=== PATIENT | female | born 1990 | race Caucasian/White ===

== ENCOUNTER 2023-08-03 09:30 | Outpatient (AMB) | payer BC, SELFPAY ==
[2023-08-03 09:33] VITALS: BP 142/87; PULSE 100; O2SAT 97; BMI 38.5
--- NOTE | 2023-08-03 09:33 | A.OFFVIS_ITS ---
Vital Signs 08/03/23 09:33 Height 5 ft 7 in Weight 245 lb 13.047 oz BMI 38.5 BP 142/87 H Blood Pressure Location Rt brachial Position Sitting Pulse 100 Pulse Source Doppler Pulse Oximetry (%) 97 Oxygen Delivery Method Room Air Intake Visit Reasons: nicola Allergies sulfamethoxazole [From BACTRIM] Allergy (Severe, Verified 08/03/23 09:38) RASH trimethoprim [From BACTRIM] Allergy (Severe, Verified 08/03/23 09:38) RASH HPI HPI nicola: Details: 33-year-old lady with underlying obstructive sleep apnea on CPAP with last sleep study over 10 years prior who is interested in continuation of her CPAP therapy. Patient states that she had significant weight changes And he current machine is no longer working well. She denies prior personal of family history of lung disease. She does have family history of sleep apnea. She is a nonsmoker. [facility] Social History (Updated 08/03/23 @ 09:39 by Theodora Zamudio COUNT INCLUDES THE [facility]) Patient Tobacco Use Status: Never used Tobacco Review of Systems Const Denies daytime sleepiness, Denies excessive sweating, Denies fatigue, Denies fever(s), Denies lethargy, Denies malaise, Denies night sweats, Denies snoring and Denies weight loss Eyes Denies blurry vision and Denies itchy eyes ENT Denies nasal congestion, Denies post nasal drip, Denies sinus pain, Denies sinus pressure and Denies other ( Thrush) Card Denies chest pain, Denies pedal edema, Denies dyspnea, Denies orthopnea and Denies paroxysmal nocturnal dyspnea Resp Denies cough, Denies hemoptysis, Denies excessive phlegm production, Denies dyspnea, Denies snoring and Denies wheezing GI Denies abdominal pain and Denies heartburn Musc Denies myalgias, Denies arthralgias and Denies joint swelling Skin/Breast Denies rash Neuro Denies memory loss and Denies seizure-like activity Psych Denies abnormal sleep pattern, Denies anxiety and Denies memory loss Endo Denies excessive sweating, Denies fatigue and Denies heat intolerance Cruz/Lymph Denies easy bruising Aller/Immun Denies itchy eyes, Denies seasonal rhinorrhea and Denies wheezing Physical Exam Vital Signs: Last Vital Signs Pulse 100 08/03/23 09:33 BP 142/87 H 08/03/23 09:33 Pulse Ox 97 08/03/23 09:33 Oxygen Delivery Method Room Air 08/03/23 09:33 BMI result Body Mass Index 38.5 Const General: no acute distress and alert Nutritional Appearance: obese Orientation/consciousness: Other orientation findings ( oriented) HEENT Head: Yes atraumatic Eyes General: appearance normal, both eyes and all related structures Sclerae: sclerae normal EOM: EOMs intact bilaterally Neck Neck: Yes supple Lymphatic: no lymphadenopathy noted Resp Effort & Inspection: normal respiratory effort and no use of accessory muscles Auscultation: clear to auscultation bilaterally Cardio Rate: regular rate Rhythm: regular rhythm Heart sounds: no gallops, no murmurs and no rubs Skin General skin exam: other ( warm) Extrem General: No clubbing, No cyanosis and No edema Assessment & Plan Assessment & Plan (1) NICOLA (obstructive sleep apnea): Code(s): G47.33 - Obstructive sleep apnea (adult) (pediatric) Category: Medical Plan: underlying NICOLA with remote sleep study and currently with CPAP machine not working well. Patient also had significant weight changes. Will obtain new home sleep study. Orders: Orders RT home sleep study Today G47.33 - Obstructive sleep apnea (adult) (pediatric) Coding Level of Care Code New Pt Level 3 (56172) Diagnoses NICOLA (obstructive sleep apnea) G47.33
== END 2023-08-03 09:46 | disposition home or self-care (01) ==
PROVIDERS: PCP Internal Medicine; Visit Provider Internal Medicine Pulmonary Disease
DX: G47.33 Obstructive sleep apnea (adult) (pediatric) (principal)
CPT/HCPCS: 99203

== ENCOUNTER → 2023-08-03 09:30 | Outpatient (BNVA) | payer BC, SELFPAY | PROVIDERS: PCP Internal Medicine; Visit Provider Internal Medicine Pulmonary Disease ==

== ENCOUNTER → 2023-09-13 08:59 | Outpatient (REF) | payer BC, SELFPAY | LOC: HO.SL 08:59 | PROVIDERS: PCP Internal Medicine; Visit Provider Internal Medicine Pulmonary Disease | DX: G47.33 Obstructive sleep apnea (adult) (pediatric) (principal) | CPT/HCPCS: 95806 ==

== ENCOUNTER → 2024-01-03 20:30 | Outpatient (REF) | payer BC, SELFPAY | LOC: HO.SL 20:30 | PROVIDERS: PCP Internal Medicine; Visit Provider Internal Medicine Pulmonary Disease | DX: G47.33 Obstructive sleep apnea (adult) (pediatric) (principal) | CPT/HCPCS: 95810 ==

== ENCOUNTER → 2024-01-03 23:41 | Outpatient (BNV) | payer BC, SELFPAY | PROVIDERS: PCP Internal Medicine; Visit Provider Internal Medicine | DX: G47.33 Obstructive sleep apnea (adult) (pediatric) (principal) | CPT/HCPCS: 95810 ==

== ENCOUNTER 2024-01-19 14:23 | Outpatient (AMB) | payer BC, SELFPAY ==
[2024-01-19 14:26] VITALS: BP 142/92; PULSE 106; O2SAT 97; BMI 42.3
--- NOTE | 2024-01-19 14:26 | MHC.OFFVIS ---
Vital Signs 01/19/24 14:26 Height 5 ft 7 in Weight 270 lb 1.06 oz BMI 42.3 BP 142/92 H Blood Pressure Location Rt brachial Position Sitting Pulse 106 H Pulse Source Doppler Pulse Oximetry (%) 97 Intake Visit Reasons: Sleep study follow up Allergies sulfamethoxazole [From BACTRIM] Allergy (Severe, Verified 01/19/24 14:31) RASH trimethoprim [From BACTRIM] Allergy (Severe, Verified 01/19/24 14:31) RASH HPI HPI Sleep study follow up: Details: 33-year-old lady with underlying obstructive sleep apnea on CPAP with last sleep study over 10 years prior who is interested in continuation of her CPAP therapy. Patient states that she had significant weight changes And he current machine is no longer working well. She denies prior personal of family history of lung disease. She does have family history of sleep apnea. She is a nonsmoker. Patient had home sleep study and in-lab sleep study both negative for any significant obstructive sleep apnea. [facility] Social History (Updated 08/03/23 @ 09:39 by Theodora Zamudio [facility]) Patient Tobacco Use Status: Never used Tobacco Physical Exam Vital Signs: Last Vital Signs Pulse 106 H 01/19/24 14:26 BP 142/92 H 01/19/24 14:26 Pulse Ox 97 01/19/24 14:26 BMI result Body Mass Index 42.3 Const General: no acute distress, alert and awake Eyes Sclerae: sclerae normal EOM: EOMs intact bilaterally Neck Neck: Yes no lymphadenopathy, Yes trachea midline and Yes supple Resp Effort & Inspection: normal respiratory effort and no respiratory distress Cardio Rate: regular rate Rhythm: regular rhythm Extrem General: No clubbing and No cyanosis Assessment & Plan Assessment & Plan (1) KAYLEN (obstructive sleep apnea): Code(s): G47.33 - Obstructive sleep apnea (adult) (pediatric) Category: Medical Plan: Results of home sleep study and in-lab sleep study reviewed comparable was negative for obstructive sleep apnea or nocturnal hypoxemia. Discussed utilization of jaw advancement device if patient remains symptomatic. Coding Level of Care Code Est Pt Level 3 (08290) Diagnoses KAYLEN (obstructive sleep apnea) G47.33
== END 2024-01-19 14:50 | disposition home or self-care (01) ==
PROVIDERS: PCP Internal Medicine; Visit Provider Internal Medicine Pulmonary Disease
DX: G47.33 Obstructive sleep apnea (adult) (pediatric) (principal)
CPT/HCPCS: 99213